=== PATIENT | male | born 1940 | race Native Hawaiian/Other Pacific Islander ===

== ENCOUNTER 2020-03-29 14:45 | Emergency (ER) | payer OTHER ==
[~2020-03-29] VITALS: Ht 175.3 cm; Wt 102.5 kg
[2020-03-29 15:00] VITALS: BP 142/68; TEMP 97.6
== END 2020-03-29 15:58 | disposition left against medical advice (07) ==
LOC: ED 14:45
DX: M54.5 Low back pain (principal); G89.29 Other chronic pain; M25.522 Pain in left elbow
CPT/HCPCS: 99281

== ENCOUNTER 2021-09-25 08:45 | Outpatient (CLI) | payer OTHER | END 2021-09-25 19:08 | disposition home or self-care (01) | LOC: CT 08:45 | PROVIDERS: ATTEND Family Medicine | DX: I35.8 Other nonrheumatic aortic valve disorders (principal) | CPT/HCPCS: 36415; 82565; 84520 ==

== ENCOUNTER 2021-10-15 15:34 | Emergency (ER) | payer OTHER ==
[~2021-10-15] VITALS: Ht 175.3 cm; Wt 102.5 kg
[2021-10-15 16:59] LABS: PLATELET COUNT 217 K/uL (142-355)
[2021-10-15 17:06] LABS: POTASSIUM 3.9 mmol/L (3.6-5.2)
[2021-10-15 17:07] VITALS: TEMP 96.7
[2021-10-15 17:07] LABS: PARTIAL THROMBOPLASTIN TIME 25.6 SECONDS (24.5-33.6)
[2021-10-15 21:01] VITALS: BP 122/65
== END 2021-10-15 22:10 | disposition home or self-care (01) ==
LOC: ED 15:34
PROVIDERS: Family Medicine
DX: R47.81 Slurred speech (principal); R53.1 Weakness; R20.2 Paresthesia of skin; R41.0 Disorientation, unspecified; Z20.822 Contact with and (suspected) exposure to COVID-19
CPT/HCPCS: 36415; 80053; 81002; 83735; 84100; 84484; 85027; 85610; 85730; 87635; 93005; 99284; 99285; U0003

== ENCOUNTER 2021-12-08 10:21 | Outpatient (CLI) | payer OTHER | END 2021-12-08 19:04 | disposition home or self-care (01) | LOC: US 10:21 | PROVIDERS: ATTEND Family Medicine | DX: E04.1 Nontoxic single thyroid nodule (principal) ==